=== PATIENT | female | born 1955 | race Two or more races ===

== ENCOUNTER 2018-04-01 11:24 | Emergency (ER) | payer MEDICAID, OTHER ==
[~2018-04-01] VITALS: Ht 167.6 cm; Wt 99.8 kg
[2018-04-01] MEDS ORDERED: SODIUM CHLORIDE 0.9% 500 ML IVB ONE (11:41)
[2018-04-01] MEDS ORDERED: ONDANSETRON HCL 4 MG/2 ML VIAL IV ONE (11:45)
[2018-04-01 11:49] VITALS: BP 117/60
[2018-04-01 12:10] LABS: Basophils # (auto) 0 uL; Basophils % (auto) 0.4 % (0.0-2.0); Eosinophils # (auto) 0.2 uL; Eosinophils % (auto) 4.1 % (0.0-7.0); Hematocrit 41.1 % (36.0-46.0); Lymphocytes # (auto) 1.4 uL; Lymphocytes % (auto) 30.5 % (10.0-50.0); Mean Corpuscular Hgb Conc. 34.1 g/dL (32.0-36.0); Mean Corpuscular Volume 90.7 fL (80.0-100.0); Monocytes # (auto) 0.7 uL; Monocytes % (auto) 15.3 % (0.0-12.0); Neutrophils # (auto) 2.3 uL; Neutrophils % (auto) 49.7 % (37.0-80.0); Nucleated Red Blood Cells % 0.1 %; Platelet Count (auto) 219 10^3/uL (140-450); Red Blood Cells 4.53 10^6/uL (4.0-5.20); Red Cell Distribution Width 12.9 % (11.8-14.3); White Blood Cell 4.6 10^3/uL (4.4-10.8)
[2018-04-01 12:30] LABS: Chloride 111 mmol/L (98-107); Magnesium 2.4 mg/dL (1.6-2.6); Potassium 3.7 mmol/L (3.5-5.1); Sodium 140 mmol/L (136-145)
[2018-04-01 12:38] LABS: Alanine Aminotransferase 70 U/L (13-56); Albumin 3.5 g/dL (3.4-5.0); Alkaline Phosphatase 114 U/L (45-117); Amylase 47 U/L (25-115); Anion Gap 4 (5-15); Aspartate Aminotransferase 59 U/L (15-37); BUN/Creatinine Ratio 14.8; Bilirubin, Total 0.4 mg/dL (0.2-1.0); Blood Urea Nitrogen 12 mg/dL (7-18); Calcium 8.2 mg/dL (8.5-10.1); Carbon Dioxide 25 mmol/L (21-32); GFR African American > 60 mL/min; GFR Non-African American > 60 mL/min; Glucose 88 mg/dL (74-106); Lipase 142 U/L (73-393); Total Protein 7.6 g/dL (6.4-8.2)
[2018-04-01 13:34] LABS: Urine Bacteria NONE SEEN /hpf (None Seen); Urine Blood Negative /uL (Negative); Urine Specific Gravity 1.018 (1.001-1.035); Urine WBC 4 /hpf (0 - 5)
== END 2018-04-01 13:33 | disposition home or self-care (01) ==
LOC: ER 11:30
DX: K52.9 Noninfective gastroenteritis and colitis, unspecified (principal); Z90.49 Acquired absence of other specified parts of digestive tract; Z86.39 Personal history of other endocrine, nutritional and metabolic disease; Z88.6 Allergy status to analgesic agent
CPT/HCPCS: 36415; 74176; 80053; 81001; 82150; 83690; 83735; 85025; 93005; 94761; 96360; 99284; J7030

== ENCOUNTER 2019-02-11 11:16 | Emergency (ER) | payer OTHER ==
[~2019-02-11] VITALS: Ht 170.2 cm; Wt 95.3 kg
[2019-02-11 11:30] VITALS: BP 151/89
[2019-02-11] MEDS ORDERED: IBUPROFEN 800 MG TAB PO ONE (14:15)
== END 2019-02-11 14:11 | disposition home or self-care (01) ==
LOC: ER 11:16
DX: S30.0XXA Contusion of lower back and pelvis, initial encounter (principal); S00.03XA Contusion of scalp, initial encounter; Z88.6 Allergy status to analgesic agent; Z88.8 Allergy status to other drugs, medicaments and biological substances; W00.0XXA Fall on same level due to ice and snow, initial encounter; Y93.29 Activity, other involving ice and snow; Y92.89 Other specified places as the place of occurrence of the external cause; Y99.8 Other external cause status
CPT/HCPCS: 72220

== ENCOUNTER 2023-10-10 07:36 | Emergency (ER) | payer OTHER ==
[~2023-10-10] VITALS: Ht 170.2 cm; Wt 93.5 kg
[2023-10-10] MEDS: SODIUM CHLORIDE 0.9% 1,000 ML IV ONE (09:48)
[2023-10-10] MEDS: SODIUM CHLORIDE 0.9% 500 ML IVB ONE (09:49)
[2023-10-10 10:03] VITALS: BP 129/82; RESP 18; TEMP 98.2; O2SAT 97
[2023-10-10 10:19] LABS: Basophils # (auto) 0.1 10 ^3/uL (0-0.2); Basophils % (auto) 0.7 % (0.0-2.0); Eosinophils # (auto) 0.1 10 ^3/uL (0-0.8); Eosinophils % (auto) 0.8 % (0.0-7.0); Hematocrit 41.7 % (36.0-46.0); Hemoglobin 14.4 g/dL (12.2-16.2); Lymphocytes # (auto) 1.6 10 ^3/uL (0.4-5.4); Mean Corpuscular Hemoglobin 30.6 pg (28.0-32.0); Mean Corpuscular Hgb Conc. 34.5 g/dL (32.0-36.0); Mean Corpuscular Volume 88.8 fL (80.0-100.0); Monocytes # (auto) 0.8 10 ^3/uL (0-1.3); Monocytes % (auto) 8.2 % (0.0-12.0); Neutrophils # (auto) 7.3 10 ^3/uL (1.6-8.6); Neutrophils % (auto) 74.3 % (37.0-80.0); Nucleated Red Blood Cells % 0.1 %; Red Blood Cells 4.69 10^6/uL (4.0-5.20); Red Cell Distribution Width 12.7 % (11.8-14.3); White Blood Cell 9.8 10^3/uL (4.4-10.8)
[2023-10-10 10:37] LABS: Alanine Aminotransferase 27 U/L (7-40); Albumin 4.2 g/dL (3.2-4.8); Alkaline Phosphatase 125 U/L (46-116); Anion Gap 7 (5-15); Aspartate Aminotransferase 23 U/L (13-40); BUN/Creatinine Ratio 10.4 (10.0-20.0); Bilirubin, Total 0.6 mg/dL (0.2-1.0); Blood Urea Nitrogen 8 mg/dL (9-23); Calcium 9.8 mg/dL (8.7-10.4); Carbon Dioxide 26 mmol/L (20-30); Chloride 104 mmol/L (98-107); Glucose 99 mg/dL (74-106); Lipase 33 U/L (12-53); Magnesium 2.1 mg/dL (1.6-2.6); Potassium 4.5 mmol/L (3.5-5.1); Sodium 137 mmol/L (136-145); Total Protein 7.7 g/dL (5.7-8.2)
[2023-10-10 11:04] LABS: Urine Bacteria None Seen /hpf (None Seen); Urine WBC None Seen /hpf (0 - 5)
[2023-10-10] MEDS: IOHEXOL 300 MG/ML 100ML BOTTLE IJ ONE (11:06)
[2023-10-10 11:08] LABS: Urine Blood Negative /uL (Negative); Urine Clarity Clear (Clear); Urine Color Yellow (Yellow); Urine Mucus FEW (None Seen); Urine Protein, UAD TRACE (Negative); Urine Specific Gravity 1.025 (1.001-1.035); Urine Urobilinogen Normal (Negative); Urine pH 5.5 (5.0-9.0)
[2023-10-10 12:22] VITALS: PULSE 67
[2023-10-10] MEDS ORDERED: BISM262C44 PO (12:36)
[2023-10-10] MEDS ORDERED: CIPR-173 PO (12:36)
== END 2023-10-10 13:08 | disposition home or self-care (01) ==
LOC: ER 07:36
DX: K52.9 Noninfective gastroenteritis and colitis, unspecified (principal); E86.0 Dehydration; K90.49 Malabsorption due to intolerance, not elsewhere classified; Z90.49 Acquired absence of other specified parts of digestive tract; Z88.6 Allergy status to analgesic agent
CPT/HCPCS: 36415; 71046; 74177; 80053; 81001; 83690; 83735; 85025; 93005; 96360; 99285; J7030; J7040; Q9967